=== PATIENT | female | born 1950 | race Caucasian/White ===

== ENCOUNTER 2016-09-07 03:02 | Emergency (ER) | payer MEDICAID, MEDICARE, OTHER ==
[~2016-09-07] VITALS: Ht 165.1 cm; Wt 90.0 kg
[~2016-09-07 03:02] MED LIST: ALBU8.5H IH; BACL10TA PO; BECL8.7A5 IH; CARV3 PO; DULO30CA2 PO; FLUT16H NASAL; MONT10TA21 PO; RANI150T7 PO; SALMH IH
[2016-09-07 04:01] LABS: ANION GAP 7 mmol/L (8-16); CALCIUM, TOTAL 8.2 mg/dL (8.8-10.5); CARBON DIOXIDE 28 mmol/L (22-29); CHLORIDE 102 mmol/L (98-107); CREATININE 0.88 mg/dL (0.60-1.30); GLOMERULAR FILTR. RATE CALC > 60 mL/min (>60); POTASSIUM 3.5 mmol/L (3.5-5.1); SODIUM SERUM 137 mmol/L (136-145); UREA NITROGEN, BLOOD 14 mg/dL (7-18)
[2016-09-07 04:06] LABS: BASOPHILS # (AUTO) 0.08 K/uL (0.00-0.20); BASOPHILS % (AUTO) 0.7 % (0.0-2.0); EOSINOPHILS % (AUTO) 0.98 % (1.0-6.0); HEMATOCRIT 41.6 % (36-46); HEMOGLOBIN 14.4 g/dL (12.0-16.0); LYMPHOCYTES # (AUTO) 2.6 K/uL (1.0-4.8); LYMPHOCYTES % (AUTO) 25.3 % (22.0-44.0); MEAN CORPUSCULAR HEMOGLOBIN 30.8 pg (26.0-34.0); MEAN CORPUSCULAR HGB CONC 34.7 G/dL (31.0-37.0); MEAN CORPUSCULAR VOLUME 89 fL (80-100); MONOCYTES # (AUTO) 0.9 K/uL (0.1-1.0); NEUTROPHILS # (AUTO) 6.7 K/uL (1.8-7.7); PLATELET COUNT (AUTO) 180 K/uL (150-450); RED BLOOD CELL COUNT(AUTO) 4.69 MIL/uL (4.00-5.20); RED CELL DISTRIBUTION WIDTH 13.2 % (11.5-14.5); WHITE BLOOD COUNT (AUTO) 10.4 K/uL (4.5-11.0)
[2016-09-07 04:09] LABS: LACTIC ACID 1.5 mmol/L (0.4-2.0)
[2016-09-07 04:12] LABS: APPEARANCE,URINE CLEAR (CLEAR); GLUCOSE, URINE (UA) NEGATIVE (NEGATIVE); KETONES,URINE NEGATIVE (NEGATIVE); LEUKOCYTE ESTERASE ,URINE MODERATE (NEGATIVE); OCCULT BLOOD,URINE NEGATIVE (NEGATIVE); PH,URINE 5.5 (5.0-8.0); PROTEIN,URINE NEGATIVE (NEGATIVE)
[2016-09-07 04:14] LABS: ADD UA MICROSCOPIC YES
[2016-09-07 04:16] LABS: ALANINE AMINOTRANSFERASE 27 U/L (12-78); ALBUMIN 3.3 g/dL (3.4-5.0); ASPARTATE AMINOTRANSFERASE 26 U/L (15-37); BILIRUBIN,TOTAL 2.2 mg/dL (0.1-1.0); TOTAL PROTEIN, SERUM 7.1 g/dL (6.4-8.2)
[2016-09-07 04:21] LABS: RBC,URINE 0-2 /HPF (0-2)
[2016-09-07 04:22] LABS: SQUAMOUS EPITHELIAL CELL,UR Few /LPF (None Seen)
[2016-09-07] MEDS: ACETAMINOPHEN 500 MG TABLET PO ONE ×2 (04:27→04:30)
[2016-09-07] MEDS ORDERED: IBUPROFEN 800 MG TABLET PO ONE (04:30)
[2016-09-07 04:31] LABS: INFLUENZA TYPE B NEGATIVE FOR TYPE B (NEGATIVE)
[2016-09-07 04:41] LABS: B-TYPE NATRIURETIC PEPTIDE 112 pg/mL (0-100)
[2016-09-07] MEDS ORDERED: PredniSONE 20 MG TABLET PO ONE (05:00)
[2016-09-07] MEDS ORDERED: LEVOFLOXACIN 250 MG TABLET PO ONE (05:00)
[2016-09-07 05:07] VITALS: BP 132/74
== END 2016-09-07 05:18 | disposition home or self-care (01) ==
LOC: EMS 03:03
DX: J45.909 Unspecified asthma, uncomplicated (principal); I25.10 Atherosclerotic heart disease of native coronary artery without angina pectoris; I50.9 Heart failure, unspecified; Z88.5 Allergy status to narcotic agent; Z95.0 Presence of cardiac pacemaker
CPT/HCPCS: 36415; 71010; 80053; 81001; 82962; 83605; 83880; 85025; 87040; 87086; 87804; 93005; 99285; J7512

== ENCOUNTER 2022-08-31 20:00 | Emergency (ER) | payer OTHER ==
[~2022-08-31] VITALS: Ht 162.6 cm; Wt 90.9 kg
[~2022-08-31 20:00] MED LIST changes: -ALBU8.5H IH; +ALBU8.5H8 IH; +DULO-114 PO; -DULO30CA2 PO; -FLUT16H NASAL; +FLUT16SP NASAL; +MONT-35 PO; -MONT10TA21 PO; +SALM50DI2 IH; -SALMH IH
[2022-08-31 20:33] LABS: BASOPHILS % (AUTO) 0.7 % (0.0-2.0); EOSINOPHILS % (AUTO) 1.4 % (1.0-6.0); HEMATOCRIT 40.5 % (36-46); HEMOGLOBIN 13.9 g/dL (12.0-16.0); LYMPHOCYTES # (AUTO) 1.3 K/uL (1.0-4.8); LYMPHOCYTES % (AUTO) 24.2 % (22.0-44.0); MEAN CORPUSCULAR HEMOGLOBIN 30.9 pg (26.0-34.0); MEAN CORPUSCULAR HGB CONC 34.4 G/dL (31.0-37.0); MEAN CORPUSCULAR VOLUME 90 fL (80-100); MONOCYTES # (AUTO) 0.3 K/uL (0.1-1.0); MONOCYTES % (AUTO) 6.2 % (2.0-9.0); NEUTROPHILS # (AUTO) 3.7 K/uL (1.8-7.7); NEUTROPHILS % (AUTO) 67.5 % (40.0-70.0); PLATELET COUNT (AUTO) 163 K/uL (150-450); RED BLOOD CELL COUNT(AUTO) 4.52 MIL/uL (4.00-5.20); RED CELL DISTRIBUTION WIDTH 14.3 % (11.5-14.5)
[2022-08-31 20:46] LABS: CALCIUM, TOTAL 9.1 mg/dL (8.8-10.5); CREATININE 0.96 mg/dL (0.60-1.30); POTASSIUM 3.7 mmol/L (3.5-5.1)
[2022-08-31 20:48] LABS: INR 1.1 (0.9-1.1); PROTHROMBIN TIME 11.4 SEC (9.4-11.6)
[2022-08-31 20:55] LABS: LACTIC ACID 1.1 mmol/L (0.4-2.0)
[2022-08-31 21:05] LABS: COVID AG,FIA SOURCE NASAL SWAB
[2022-08-31 21:08] LABS: AMMONIA 12 umol/L (11-32)
[2022-08-31 21:09] LABS: THYROID STIMULATING HORMONE 3.57 uIU/mL (0.36-3.74)
[2022-08-31 21:11] LABS: ALBUMIN 3.9 g/dL (3.4-5.0); BILIRUBIN,TOTAL 0.8 mg/dL (0.1-1.0); TOTAL PROTEIN, SERUM 7.5 g/dL (6.4-8.2)
[2022-08-31 22:23] VITALS: BP 113/72
[2022-08-31] MEDS ORDERED: TRAM-559 PO (22:26)
[2022-08-31 22:27] LABS: APPEARANCE,URINE CLEAR (CLEAR); BILIRUBIN,URINE NEGATIVE (NEGATIVE); GLUCOSE, URINE (UA) NEGATIVE (NEGATIVE); KETONES,URINE NEGATIVE (NEGATIVE); LEUKOCYTE ESTERASE ,URINE NEGATIVE (NEGATIVE); NITRATE,URINE NEGATIVE (NEGATIVE); OCCULT BLOOD,URINE NEGATIVE (NEGATIVE); PROTEIN,URINE NEGATIVE (NEGATIVE); SPECIFIC GRAVITIY, URINE 1.016 (1.003-1.030); UROBILINOGEN,URINE <=1.0 mg/dL (<=1.0)
[2022-08-31] MEDS ORDERED: TRAZ-252 PO (22:32)
[2022-08-31] MEDS ORDERED: SERT-158 PO (22:32)
[2022-08-31] MEDS ORDERED: CARV6 PO (22:32)
[2022-08-31] MEDS ORDERED: KCL10IV PO (22:32)
[2022-08-31] MEDS ORDERED: PANT-31 PO (22:32)
[2022-08-31] MEDS ORDERED: APIX5TAB PO (22:32)
[2022-08-31 22:55] LABS: AMPHET/METH SCREEN,URINE NEGATIVE (NEGATIVE); BARBITURATE SCREEN, URINE NEGATIVE (NEGATIVE); BENZODIAZEPINES SCREEN,URINE NEGATIVE (NEGATIVE); CANNABINOID SCREEN,URINE NEGATIVE (NEGATIVE); COCAINE SCREEN,URINE NEGATIVE (NEGATIVE); METHADONE SCREEN, URINE NEGATIVE (NEGATIVE); OPIATE SCREEN,URINE NEGATIVE (NEGATIVE); PHENCYCLIDINE SCREEN,URINE NEGATIVE (NEGATIVE)
== END 2022-08-31 22:59 | disposition short-term general hospital (02) ==
LOC: EMS 20:02
DX: R55 Syncope and collapse (principal); I49.9 Cardiac arrhythmia, unspecified; J45.909 Unspecified asthma, uncomplicated; I25.10 Atherosclerotic heart disease of native coronary artery without angina pectoris; F32.A Depression, unspecified; Z90.49 Acquired absence of other specified parts of digestive tract; Z88.5 Allergy status to narcotic agent; Z20.822 Contact with and (suspected) exposure to COVID-19; Z98.890 Other specified postprocedural states
CPT/HCPCS: 51702; 70450; 71045; 80053; 80307; 81003; 82140; 82550; 83605; 83880; 84443; 84484; 85025; 85610; 85730; 87040; 93005; 99291; 36415-L1; 36415-TC